=== PATIENT | male | born 1960 | race Caucasian/White ===

== ENCOUNTER → 2020-08-02 16:46 | Outpatient (CLI) | payer SELFPAY ==
[2020-08-02 17:36] LABS: Absolute Lymphocyte Count 1.04 X10^3/uL (0.83-4.51); Absolute Neutrophil Count 3.1 X10^3/uL (2.0-7.7); Basophil# 0.05 X10^3/uL; Eosinophil# 0.11 X10^3/uL; Eosinophils% 2.2 % (0-5); Hematocrit 33.1 % (40-54); Hemoglobin 9.2 g/dL (13.0-16.5); Lymphocyte # 1.04 X10^3/ul (4.0); Lymphocyte % 21.3 % (19-41); Mean Corp Hgb Conc 27.8 g/dL (32-36); Mean Corpuscular Hgb 22.1 pg (27.0-32.0); Mean Corpuscular Volume 79.6 fL (80-94); Mean Platelet Vol. 11.2 fl (6.2-12.0); Monocyte# 0.63 X10^3/uL; Monocyte% 12.9 % (0-10); NRBC Flagged by Analyzer 0 % (0-5); Neutrophil # 3.05 X10^3/uL (2.7-7.7); Neutrophil % 62.4 % (47-70); Platelet Count 238 K/mm3 (150-450); RBC Distribution Width CV 16.8 % (11.6-14.6); RBC Distribution Width SD 48.5 fl (35.1-43.9); Red Blood Count 4.16 M/mm3 (4.6-6.2); White Blood Count 4.9 K/mm3 (4.4-11.0)
[2020-08-02 17:57] LABS: BNP,B-Type NATRIURETIC PEPTIDE 864.9 pg/mL (0-100)
[2020-08-02 18:09] LABS: ALB/GLOB Ratio 1.2 RATIO (0.9-2.4); AST(SGOT) 28 U/L (15-37); Alanine Aminotransfer ALT/SGPT 41 U/L (16-61); Albumin, Serum 3.6 g/dL (3.2-5.0); Alkaline Phosphatase 83 U/L (45-117); Anion Gap 7 (5-15); BUN 25 mg/dL (7-18); BUN/Creat Ratio 18.8 RATIO (10-20); CPK Total, Creatine Kinase 280 U/L (39-308); Calcium,Total 9.2 mg/dL (8.5-10.1); Chloride 109 mmol/L (98-107); Creatinine, Serum 1.33 mg/dL (0.70-1.30); EST Glomerular Filtration Rate 58 mL/min (>60); Est Glom Filt Rate - Afr Amer 71 mL/min (>60); Glucose 95 mg/dL (74-106); PSA,Total - Annual Screen 0.92 ng/mL (0.00-4.00); Potassium 4.5 mmol/L (3.5-5.1); Protein, Total 6.6 g/dL (6.4-8.2); Sodium Level 143 mmol/L (136-145); Thyroid Stim Hormone (TSH) 3.79 uIU/mL (0.358-3.74)
[2020-08-04 07:07] LABS: HEPATITIS B SURFACE AG Negative (Negative); Hepatitis A AB, Total Negative (Negative); Hepatitis A IgM Antibody Negative (Negative); Hepatitis B Core AB IgM Negative (Negative); Hepatitis B Core Ab Total Negative (Negative); Hepatitis C Ab <0.1 s/co ratio (0.0-0.9)
[2020-08-04 09:28] LABS: Hep B Surface Antibodies Non Reactive (.); Myoglobin, Serum 97 ng/mL (28-72)
== END ==
PROVIDERS: Visit Provider Family Medicine Geriatric Medicine
DX: R06.02 Shortness of breath (principal); R53.83 Other fatigue; R60.9 Edema, unspecified; Z12.5 Encounter for screening for malignant neoplasm of prostate; Z13.89 Encounter for screening for other disorder
CPT/HCPCS: 36415; 80053; 82550; 83874; 83880; 84153; 84443; 84484; 85025; 86704; 86705; 86706; 86708; 86709; 86803; 87340; G0103

== ENCOUNTER → 2020-08-03 09:49 | Outpatient (CLI) | payer SELFPAY ==
--- NOTE | 2020-08-03 09:57 | RAD_ITS ---
STUDY: X-RAY CHEST REASON FOR EXAM: Male, 59 years old. CHF TECHNIQUE: PA and lateral views of the chest. COMPARISON: None. FINDINGS: Azygos lobe. This is a normal variant. Mild elevation of the right hemidiaphragm. There is mild cardiac enlargement. Normal mediastinum and ralf. Normal visualized pulmonary arteries. Normal visualized aortic arch and descending thoracic aorta. There are diffuse degenerative changes of the visualized thoracic spine. Normal visualized ribs, clavicles, and shoulders. Large hiatal hernia. RAD/Chest PA and Lateral IMPRESSION: Large hiatal hernia. Cardiomegaly. Electronically Signed: Tom Sheikh MD at 10:52 EDT , Service support ,
== END ==
PROVIDERS: PCP Family Medicine Geriatric Medicine; Referring Provider Family Medicine Geriatric Medicine; Visit Provider Family Medicine Geriatric Medicine
DX: I50.9 Heart failure, unspecified (principal); K44.9 Diaphragmatic hernia without obstruction or gangrene
CPT/HCPCS: 71046

== ENCOUNTER → 2020-08-03 11:10 | Outpatient (CLI) | payer SELFPAY ==
[2020-08-03 12:46] LABS: Absolute Lymphocyte Count 0.74 X10^3/uL (0.83-4.51); Basophil# 0.04 X10^3/uL; Basophil% 0.9 % (0-1); Eosinophils% 2.3 % (0-5); Hematocrit 33.7 % (40-54); Hemoglobin 9.3 g/dL (13.0-16.5); Lymphocyte # 0.74 X10^3/ul (4.0); Lymphocyte % 16.8 % (19-41); Mean Corp Hgb Conc 27.6 g/dL (32-36); Mean Corpuscular Hgb 22.2 pg (27.0-32.0); Mean Corpuscular Volume 80.4 fL (80-94); Mean Platelet Vol. 11.8 fl (6.2-12.0); Monocyte# 0.55 X10^3/uL; Monocyte% 12.5 % (0-10); NRBC Flagged by Analyzer 0 % (0-5); Neutrophil # 2.96 X10^3/uL (2.7-7.7); Neutrophil % 67.3 % (47-70); Platelet Count 237 K/mm3 (150-450); RBC Distribution Width SD 49.3 fl (35.1-43.9); Red Blood Count 4.19 M/mm3 (4.6-6.2); White Blood Count 4.4 K/mm3 (4.4-11.0)
[2020-08-03 13:05] LABS: Vitamin B12 451 pg/mL (211-911)
[2020-08-03 13:15] LABS: Ferritin 6 ng/mL (26-388); Iron 22 ug/dL (65-175); Iron Binding Capacity,Total 458 ug/dL (250-450)
== END ==
PROVIDERS: PCP Family Medicine Geriatric Medicine; Visit Provider Family Medicine Geriatric Medicine
DX: D64.9 Anemia, unspecified (principal)
CPT/HCPCS: 36415; 82607; 82728; 82746; 83540; 83550; 85025

== ENCOUNTER → 2020-08-09 09:45 | Outpatient (CLI) | payer SELFPAY ==
[2020-08-06 08:42] VITALS: BMI 35.3
--- NOTE | 2020-08-09 09:47 | ECHOD_ITS ---
Reason For Study: ENDOCARDITIS Procedure This was a 2D Doppler, Color Flow transthoracic echocardiogram. Exam performed in department. Left Ventricle Normal LV size. The estimated ejection fraction is 65 %. Stage 2 diastolic dysfunction. No regional wall motion abnormalities noted. Right Ventricle Normal RV size. Normal systolic function. Atria The left atrium is severely enlarged. The right atrium is mildly enlarged. No doppler evidence for ASD. Mitral Valve There is no mitral valve stenosis. Moderate (2+) mitral valve insufficiency. Tricuspid Valve There is no tricuspid stenosis. Trivial tricuspid valve insufficiency. Pulmonary artery systolic pressure is 60 mmHg. Aortic Valve Trisinus/trileaflet aortic valve. There is no aortic stenosis. Mild (1+) aortic valve insufficiency. Pulmonic Valve There is no pulmonic valvular stenosis. Trivial pulmonic valve insufficiency. Great Vessels Normal aortic root. Pericardium/Pleural No pericardial effusion. MMode/2D Measurements & Calculations LVIDd: 5.9 cm IVSd: 1.1 cm Ao root diam: 3.2 cm LVIDs: 3.6 cm LVPWd: 1.1 cm RVDd: 4.0 cm FS: 39.3 % LAV(MOD-bp): 206.6 ml LVAd ap4: 47.4 cm2 SV(MOD-sp4): 115.9 ml LAV(MOD-bp) Indexed: 85.2 ml/m2 EDV(MOD-sp4): 190.1 ml LAV(MOD-sp2): 222.4 ml EDV(sp4-el): 201.3 ml LAV(MOD-sp4): 185.2 ml LVAs ap4: 26.6 cm2 ESV(MOD-sp4): 74.1 ml ESV(sp4-el): 74.8 ml EF(MOD-sp4): 61.0 % EF(sp4-el): 62.8 % SV(sp4-el): 126.5 ml LA A4 area: 43.5 cm2 RA A4 area: 27.0 cm2 Time Measurements MV dec time: 0.17 sec Doppler Measurements & Calculations MV E max kael: 172.9 cm/sec Lat Peak E' Kael: 11.2 cm/sec Med Peak E' Kael: 5.8 cm/sec MV A max kael: 135.4 cm/sec E/E' lat: 15.4 E/E' med: 29.7 MV E/A: 1.3 Ao V2 max: 146.4 cm/sec AI max kael: 445.5 cm/sec LV V1 max: 132.4 cm/sec Ao max P.6 mmHg AI max P.4 mmHg LV V1 max P.0 mmHg AI dec slope: 319.4 cm/sec2 AI P1/2t: 408.5 msec PA V2 max: 113.6 cm/sec TR max kael: 341.9 cm/sec TR max P.8 mmHg Interpretation Summary The estimated ejection fraction is 65 %. Stage 2 diastolic dysfunction. Moderate (2+) mitral valve insufficiency. Pulmonary artery systolic pressure is 60 mmHg. Mild (1+) aortic valve insufficiency. Trivial pulmonic valve insufficiency. The left atrium is severely enlarged. Ordering Physician: Osito Alcantar Referring Physician: Osito Alcantar Chi Performed By: Antonieta Delacruz RDCS
[2020-08-09 15:05] LABS: Absolute Lymphocyte Count 0.98 X10^3/uL (0.83-4.51); Basophil# 0.06 X10^3/uL; Eosinophil# 0.11 X10^3/uL; Eosinophils% 1.8 % (0-5); Hematocrit 34.7 % (40-54); Hemoglobin 9.6 g/dL (13.0-16.5); Lymphocyte # 0.98 X10^3/ul (4.0); Lymphocyte % 16.4 % (19-41); Mean Corp Hgb Conc 27.7 g/dL (32-36); Mean Corpuscular Volume 79.6 fL (80-94); Monocyte# 0.87 X10^3/uL; Monocyte% 14.5 % (0-10); NRBC Flagged by Analyzer 0 % (0-5); Neutrophil # 3.96 X10^3/uL (2.7-7.7); Neutrophil % 66.1 % (47-70); Platelet Count 245 K/mm3 (150-450); RBC Distribution Width CV 17.1 % (11.6-14.6); RBC Distribution Width SD 48.7 fl (35.1-43.9); Red Blood Count 4.36 M/mm3 (4.6-6.2)
[2020-08-09 15:30] LABS: Anion Gap 3 (5-15); BUN 24 mg/dL (7-18); BUN/Creat Ratio 17.9 RATIO (10-20); Calcium,Total 9.4 mg/dL (8.5-10.1); Chloride 109 mmol/L (98-107); Creatinine, Serum 1.34 mg/dL (0.70-1.30); EST Glomerular Filtration Rate 58 mL/min (>60); Est Glom Filt Rate - Afr Amer 70 mL/min (>60); Glucose 80 mg/dL (74-106); Potassium 5.4 mmol/L (3.5-5.1); Sodium Level 141 mmol/L (136-145)
== END ==
LOC: CVS 09:46 → LAB 14:14
PROVIDERS: PCP Family Medicine Geriatric Medicine; Referring Provider Family Medicine Geriatric Medicine; Visit Provider Family Medicine Geriatric Medicine
DX: I38 Endocarditis, valve unspecified (principal); D50.9 Iron deficiency anemia, unspecified; I50.33 Acute on chronic diastolic (congestive) heart failure
CPT/HCPCS: 36415; 80048; 85025; 93306

== ENCOUNTER → 2020-08-15 15:57 | Outpatient (CLI) | payer SELFPAY ==
[2020-08-15 17:16] LABS: Anion Gap 6 (5-15); BUN 25 mg/dL (7-18); BUN/Creat Ratio 17.6 RATIO (10-20); Calcium,Total 9.5 mg/dL (8.5-10.1); Chloride 108 mmol/L (98-107); Creatinine, Serum 1.42 mg/dL (0.70-1.30); EST Glomerular Filtration Rate 54 mL/min (>60); Est Glom Filt Rate - Afr Amer 65 mL/min (>60); Glucose 96 mg/dL (74-106); Potassium 4.3 mmol/L (3.5-5.1); Sodium Level 139 mmol/L (136-145)
== END ==
PROVIDERS: Visit Provider Family Medicine Geriatric Medicine
DX: E87.5 Hyperkalemia (principal)
CPT/HCPCS: 36415; 80048

== ENCOUNTER → 2020-09-06 16:46 | Outpatient (CLI) | payer SELFPAY ==
[2020-09-06 17:08] LABS: Absolute Lymphocyte Count 1.25 X10^3/uL (0.83-4.51); Absolute Neutrophil Count 3.6 X10^3/uL (2.0-7.7); Basophil# 0.06 X10^3/uL; Eosinophil# 0.15 X10^3/uL; Eosinophils% 2.6 % (0-5); Hematocrit 40.9 % (40-54); Hemoglobin 11.5 g/dL (13.0-16.5); Lymphocyte # 1.25 X10^3/ul (0.83-4.51); Lymphocyte % 21.6 % (19-41); Mean Corp Hgb Conc 28.1 g/dL (32-36); Mean Corpuscular Volume 78.2 fL (80-94); Mean Platelet Vol. 10.6 fl (6.2-12.0); Monocyte% 12.1 % (0-10); NRBC Flagged by Analyzer 0 % (0-5); Neutrophil # 3.61 X10^3/uL (2.7-7.7); Neutrophil % 62.4 % (47-70); Platelet Count 242 K/mm3 (150-450); RBC Distribution Width CV 19.3 % (11.6-14.6); RBC Distribution Width SD 53.1 fl (35.1-43.9); Red Blood Count 5.23 M/mm3 (4.6-6.2); White Blood Count 5.8 K/mm3 (4.4-11.0)
[2020-09-06 17:31] LABS: Anion Gap 3 (5-15); BUN 34 mg/dL (7-18); BUN/Creat Ratio 26.6 RATIO (10-20); Calcium,Total 9.4 mg/dL (8.5-10.1); Chloride 105 mmol/L (98-107); Creatinine, Serum 1.28 mg/dL (0.70-1.30); EST Glomerular Filtration Rate 61 mL/min (>60); Est Glom Filt Rate - Afr Amer 74 mL/min (>60); Glucose 91 mg/dL (74-106); Potassium 5.1 mmol/L (3.5-5.1); Sodium Level 135 mmol/L (136-145)
== END ==
PROVIDERS: Visit Provider Family Medicine Geriatric Medicine
DX: D50.9 Iron deficiency anemia, unspecified (principal); N17.9 Acute kidney failure, unspecified
CPT/HCPCS: 36415; 80048; 85025

== ENCOUNTER → 2020-11-30 09:53 | Outpatient (CLI) | payer SELFPAY ==
[2020-08-24 10:31] VITALS: BMI 34.2
--- NOTE | 2020-11-30 09:57 | ECHOD_ITS ---
Reason For Study: Chronic Diastolic CHF, MR Procedure This was a 2D Doppler, Color Flow transthoracic echocardiogram. Exam performed in department. Left Ventricle Normal LV size. Left ventricular systolic function is normal. Stage 1 diastolic dysfunction. No regional wall motion abnormalities noted. Right Ventricle Normal RV size. Normal systolic function. Atria Normal left atrium. Normal right atrium. Mitral Valve Mild focal mitral valve calcification, bileaflet. Mild (1+) eccentric mitral valve insufficiency. Tricuspid Valve Normal tricuspid valve. Aortic Valve Trisinus/trileaflet aortic valve. Mild (1+) aortic valve insufficiency. Pulmonic Valve Normal pulmonic valve. Great Vessels Normal aortic root. The pulmonary artery is normal size. Normal inferior vena cava. Pericardium/Pleural No pericardial effusion. MMode/2D Measurements & Calculations LVIDd: 4.2 cm IVSd: 2.3 cm Ao root diam: 4.0 cm LVIDs: 3.0 cm LVPWd: 1.6 cm LA dimension: 4.4 cm RVDd: 4.3 cm FS: 29.9 % LAV(MOD-bp): 127.0 ml LA A4 area: 37.6 cm2 RA A4 area: 23.1 cm2 LAV(MOD-bp) Indexed: 53.7 ml/m2 LAV(MOD-sp2): 92.3 ml LAV(MOD-sp4): 168.7 ml Time Measurements MV dec time: 0.30 sec Doppler Measurements & Calculations MV E max kael: 60.9 cm/sec Lat Peak E' Kael: 5.6 cm/sec Med Peak E' Kael: 2.6 cm/sec MV A max kael: 124.7 cm/sec E/E' lat: 11.0 E/E' med: 23.6 MV E/A: 0.49 MV V2 max: 151.4 cm/sec MV P1/2t max kael: 89.3 cm/sec Ao V2 max: 112.5 cm/sec MV max P.2 mmHg MV P1/2t: 112.5 msec Ao max P.1 mmHg MV V2 mean: 82.4 cm/sec MV dec slope: 232.5 cm/sec2 MV mean P.3 mmHg MVA(P1/2t): 2.0 cm2 MV V2 VTI: 33.2 cm AI max kael: 398.6 cm/sec LV V1 max: 86.5 cm/sec MR max kael: 586.0 cm/sec AI max P.6 mmHg LV V1 max P.0 mmHg MR max P.4 mmHg MR mean kael: 419.0 cm/sec AI dec slope: 164.3 cm/sec2 MR mean P.5 mmHg AI P1/2t: 710.8 msec MR VTI: 189.2 cm PA V2 max: 157.9 cm/sec ECHO/Echo Complete Interpretation Summary Normal LV size. Left ventricular systolic function is normal. No regional wall motion abnormalities noted. Mild (1+) eccentric mitral valve insufficiency. Mild (1+) aortic valve insufficiency. Stage 1 diastolic dysfunction. Ordering Physician: Ancelmo Maciel Referring Physician: Osito Alcantar Chi Performed By: Joshua Gomez RCS
== END ==
PROVIDERS: PCP Family Medicine Geriatric Medicine; Referring Provider Internal Medicine Cardiovascular Disease; Visit Provider Internal Medicine Cardiovascular Disease
DX: I50.32 Chronic diastolic (congestive) heart failure (principal); I34.0 Nonrheumatic mitral (valve) insufficiency; I51.7 Cardiomegaly; I51.9 Heart disease, unspecified; I27.21 Secondary pulmonary arterial hypertension
CPT/HCPCS: 93306

== ENCOUNTER → 2020-12-06 12:06 | Outpatient (CLI) | payer SELFPAY ==
[2020-08-24 10:31] VITALS: BMI 34.2
[2020-12-06 17:24] LABS: Absolute Lymphocyte Count 1.47 X10^3/uL (0.83-4.51); Absolute Neutrophil Count 2.3 X10^3/uL (2.0-7.7); Basophil# 0.03 X10^3/uL; Basophil% 0.6 % (0-1); Eosinophil# 0.17 X10^3/uL; Eosinophils% 3.6 % (0-5); Hematocrit 41.8 % (40-54); Lymphocyte # 1.47 X10^3/ul (0.83-4.51); Lymphocyte % 31.3 % (19-41); Mean Corp Hgb Conc 31.1 g/dL (32-36); Mean Corpuscular Hgb 25.6 pg (27.0-32.0); Mean Corpuscular Volume 82.3 fL (80-94); Monocyte% 14.9 % (0-10); NRBC Flagged by Analyzer 0 % (0-5); Neutrophil # 2.32 X10^3/uL (2.7-7.7); Neutrophil % 49.4 % (47-70); Platelet Count 201 K/mm3 (150-450); Red Blood Count 5.08 M/mm3 (4.6-6.2); White Blood Count 4.7 K/mm3 (4.4-11.0)
[2020-12-06 18:21] LABS: AST(SGOT) 29 U/L (15-37); Alanine Aminotransfer ALT/SGPT 33 U/L (16-61); Albumin, Serum 3.8 g/dL (3.2-5.0); Alkaline Phosphatase 77 U/L (45-117); Anion Gap 6 (5-15); BUN 26 mg/dL (7-18); BUN/Creat Ratio 21.7 RATIO (10-20); Calcium,Total 9.4 mg/dL (8.5-10.1); Chloride 106 mmol/L (98-107); EST Glomerular Filtration Rate 66 mL/min (>60); Est Glom Filt Rate - Afr Amer 79 mL/min (>60); Globulin 3.7 g/dL (2.2-4.2); Glucose 74 mg/dL (74-106); Potassium 4.2 mmol/L (3.5-5.1); Protein, Total 7.5 g/dL (6.4-8.2); Sodium Level 138 mmol/L (136-145)
[2020-12-06 21:25] LABS: Vitamin D,25 Hydroxy 27.4 ng/mL
== END ==
PROVIDERS: PCP Family Medicine Geriatric Medicine; Visit Provider Family Medicine Geriatric Medicine
DX: E55.9 Vitamin D deficiency, unspecified (principal); R53.83 Other fatigue
CPT/HCPCS: 36415; 80053; 82306; 84443; 85025

== ENCOUNTER → 2021-03-06 16:13 | Outpatient (CLI) | payer SELFPAY ==
[2021-03-06 17:06] LABS: Absolute Lymphocyte Count 1.56 X10^3/uL (0.83-4.51); Absolute Neutrophil Count 2.9 X10^3/uL (2.0-7.7); Basophil# 0.04 X10^3/uL; Basophil% 0.7 % (0-1); Eosinophil# 0.12 X10^3/uL; Eosinophils% 2.2 % (0-5); Hematocrit 45.3 % (40-54); Hemoglobin 14.9 g/dL (13.0-16.5); Lymphocyte # 1.56 X10^3/ul (0.83-4.51); Lymphocyte % 29.2 % (19-41); Mean Corp Hgb Conc 32.9 g/dL (32-36); Mean Corpuscular Hgb 28.9 pg (27.0-32.0); Mean Corpuscular Volume 87.8 fL (80-94); Mean Platelet Vol. 11.3 fl (6.2-12.0); Monocyte# 0.73 X10^3/uL; Monocyte% 13.7 % (0-10); NRBC Flagged by Analyzer 0 % (0-5); Neutrophil # 2.88 X10^3/uL (2.7-7.7); Platelet Count 197 K/mm3 (150-450); RBC Distribution Width CV 15.6 % (11.6-14.6); RBC Distribution Width SD 50.8 fl (35.1-43.9); Red Blood Count 5.16 M/mm3 (4.6-6.2); White Blood Count 5.3 K/mm3 (4.4-11.0)
[2021-03-06 17:28] LABS: Vitamin D,25 Hydroxy 26.4 ng/mL
[2021-03-06 17:39] LABS: AST(SGOT) 32 U/L (15-37); Alanine Aminotransfer ALT/SGPT 31 U/L (16-61); Alkaline Phosphatase 84 U/L (45-117); Anion Gap 9 (5-15); BUN 27 mg/dL (7-18); BUN/Creat Ratio 17.6 RATIO (10-20); Calcium,Total 10.4 mg/dL (8.5-10.1); Chloride 103 mmol/L (98-107); Creatinine, Serum 1.53 mg/dL (0.70-1.30); EST Glomerular Filtration Rate 50 mL/min (>60); Est Glom Filt Rate - Afr Amer 60 mL/min (>60); Glucose 91 mg/dL (74-106); Potassium 4.6 mmol/L (3.5-5.1); Sodium Level 140 mmol/L (136-145); Thyroid Stim Hormone (TSH) 3.43 uIU/mL (0.358-3.74)
== END ==
PROVIDERS: PCP Family Medicine Geriatric Medicine; Visit Provider Family Medicine Geriatric Medicine
DX: E55.9 Vitamin D deficiency, unspecified (principal); R53.83 Other fatigue
CPT/HCPCS: 36415; 80053; 82306; 84443; 85025

== ENCOUNTER 2021-08-08 15:34 | Outpatient (CLI) | payer SELFPAY ==
[2021-08-08 17:12] LABS: ALB/GLOB Ratio 1.1 RATIO (0.9-2.4); AST(SGOT) 26 U/L (15-37); Alanine Aminotransfer ALT/SGPT 30 U/L (16-61); Albumin, Serum 3.9 g/dL (3.2-5.0); Alkaline Phosphatase 84 U/L (45-117); Anion Gap 6 (5-15); BUN 20 mg/dL (7-18); BUN/Creat Ratio 15.5 RATIO (10-20); Calcium,Total 9.5 mg/dL (8.5-10.1); Chloride 104 mmol/L (98-107); Creatinine, Serum 1.29 mg/dL (0.70-1.30); EST Glomerular Filtration Rate 60 mL/min (>60); Est Glom Filt Rate - Afr Amer 73 mL/min (>60); Globulin 3.6 g/dL (2.2-4.2); Glucose 87 mg/dL (74-106); PSA,Total - Annual Screen 0.86 ng/mL (0.00-4.00); Potassium 4.4 mmol/L (3.5-5.1); Protein, Total 7.5 g/dL (6.4-8.2); Sodium Level 137 mmol/L (136-145); Thyroid Stim Hormone (TSH) 2.75 uIU/mL (0.358-3.74)
[2021-08-08 17:16] LABS: Absolute Lymphocyte Count 1.53 X10^3/uL (0.83-4.51); Absolute Neutrophil Count 2.4 X10^3/uL (2.0-7.7); Basophil# 0.04 X10^3/uL; Basophil% 0.8 % (0-1); Eosinophil# 0.12 X10^3/uL; Eosinophils% 2.5 % (0-5); Hematocrit 44.5 % (40-54); Hemoglobin 14.4 g/dL (13.0-16.5); Lymphocyte # 1.53 X10^3/ul (0.83-4.51); Lymphocyte % 32.4 % (19-41); Mean Corp Hgb Conc 32.4 g/dL (32-36); Mean Corpuscular Hgb 28.9 pg (27.0-32.0); Mean Corpuscular Volume 89.2 fL (80-94); Mean Platelet Vol. 11.4 fl (6.2-12.0); Monocyte# 0.67 X10^3/uL; Monocyte% 14.2 % (0-10); NRBC Flagged by Analyzer 0 % (0-5); Neutrophil # 2.35 X10^3/uL (2.7-7.7); Neutrophil % 49.9 % (47-70); Platelet Count 179 K/mm3 (150-450); RBC Distribution Width CV 14.4 % (11.6-14.6); RBC Distribution Width SD 46.8 fl (35.1-43.9); Red Blood Count 4.99 M/mm3 (4.6-6.2); White Blood Count 4.7 K/mm3 (4.4-11.0)
== END 2021-08-08 23:59 | disposition home or self-care (01) ==
LOC: POLAB3 15:37
PROVIDERS: PCP Family Medicine Geriatric Medicine; Visit Provider Family Medicine Geriatric Medicine
DX: R53.83 Other fatigue (principal); Z12.5 Encounter for screening for malignant neoplasm of prostate
CPT/HCPCS: 36415; 80053; 84153; 84443; 85025; G0103

== ENCOUNTER → 2022-08-11 | Outpatient (CLI) | payer SELFPAY ==
[2022-08-11 17:13] LABS: Absolute Lymphocyte Count 1.54 X10^3/uL (0.83-4.51); Absolute Neutrophil Count 3.2 X10^3/uL (2.0-7.7); Basophil# 0.02 X10^3/uL; Basophil% 0.4 % (0-1); Eosinophil# 0.06 X10^3/uL; Eosinophils% 1.1 % (0-5); Hemoglobin 16.3 g/dL (13.0-16.5); Lymphocyte # 1.54 X10^3/ul (0.83-4.51); Lymphocyte % 28.6 % (19-41); Mean Corpuscular Hgb 30.6 pg (27.0-32.0); Mean Corpuscular Volume 90.1 fL (80-94); Mean Platelet Vol. 11.1 fl (6.2-12.0); Monocyte# 0.59 X10^3/uL; Monocyte% 10.9 % (0-10); NRBC Flagged by Analyzer 0 % (0-5); Neutrophil # 3.18 X10^3/uL (2.7-7.7); Platelet Count 182 K/mm3 (150-450); RBC Distribution Width CV 13.6 % (11.6-14.6); RBC Distribution Width SD 45.1 fl (35.1-43.9); Red Blood Count 5.33 M/mm3 (4.6-6.2); White Blood Count 5.4 K/mm3 (4.4-11.0)
[2022-08-11 18:56] LABS: ALB/GLOB Ratio 1.2 RATIO (0.9-2.4); AST(SGOT) 26 U/L (15-37); Alanine Aminotransfer ALT/SGPT 27 U/L (16-61); Alkaline Phosphatase 86 U/L (45-117); Anion Gap 6 (5-15); BUN 21 mg/dL (7-18); BUN/Creat Ratio 15.6 RATIO (10-20); Chloride 102 mmol/L (98-107); Creatinine, Serum 1.35 mg/dL (0.70-1.30); EST Glomerular Filtration Rate 57 mL/min (>60); Est Glom Filt Rate - Afr Amer 69 mL/min (>60); Globulin 3.4 g/dL (2.2-4.2); Glucose 92 mg/dL (74-106); Potassium 4.2 mmol/L (3.5-5.1); Protein, Total 7.4 g/dL (6.4-8.2); Sodium Level 134 mmol/L (136-145); Thyroid Stim Hormone (TSH) 7.43 uIU/mL (0.358-3.74)
== END | disposition home or self-care (01) ==
PROVIDERS: PCP Family Medicine Geriatric Medicine; Referring Provider Family Medicine Geriatric Medicine; Visit Provider Family Medicine Geriatric Medicine
DX: Z12.5 Encounter for screening for malignant neoplasm of prostate (principal); R53.83 Other fatigue
CPT/HCPCS: 36415; 80053; 84153; 84443; 85025; G0103

== ENCOUNTER 2023-06-30 11:52 | Emergency (ER) | payer SELFPAY ==
[2023-06-30 11:53] VITALS: BP 161/86; PULSE 92; RESP 16; TEMP 36.4; O2SAT 98; BMI 14.6
--- NOTE | 2023-06-30 12:23 | EDS_ITS ---
HPI History of Present Illness Chief Complaint: Syncope Informant: patient Onset/Context/Timing Onset: Today Context: Sudden Onset Timing: Continuous Quality: Aching Location: Left side of head Worsened by: Nothing Relieved by: Nothing Narrative Narrative: Patient presents after syncopal episode that occurred today. Patient states he was at a grocery store when he reached down to get a can of coffee off of the bottom shelf. Patient states he stood up and felt dizzy. Patient states he remembers waking up on the floor with paramedics around him. Patient denies any chest pain or shortness of breath. Patient denies any nausea or vomiting. Patient denies any palpitations. Patient did hit the left side of his head. Patient denies any visual changes. [facility] Medical History Bilateral lower extremity edema Chronic diastolic (congestive) heart failure Endocarditis (1993) Epistaxis, recurrent Essential hypertension Hiatal hernia Hypothyroidism Iron deficiency anemia Left atrial enlargement Left bundle branch block (LBBB) Left ventricular diastolic dysfunction Obesity Reducible right inguinal hernia Rheumatic fever Secondary pulmonary arterial hypertension Home Medications furosemide 40 mg tablet (Lasix) 40 mg PO DAILY 08/06/20 [History Last Taken Unknown] levocetirizine 5 mg tablet (Xyzal) 5 mg PO DAILY 08/06/20 [History Last Taken Unknown] ipratropium bromide 42 mcg (0.06 %) nasal spray 2 spray intranasal QHS 03/07/21 [History Last Taken Unknown] amlodipine 10 mg tablet 10 mg PO DAILY #90 tabs 03/23/23 [Rx Last Taken Unknown] levothyroxine 25 mcg tablet 25 mcg PO DAILY 03/23/23 [History Last Taken Unknown] Allergy/AdvReac Type Severity Reaction Status Date / Time salicylic acid Allergy Mild PT UNSURE Verified 06/30/23 11:57 [From P and S (salicylic OF REACTION acid)] Penicillins Allergy Anaphylaxis Verified 06/30/23 11:57 Family History Mother Diabetes Hypertension Father Heart disease Surgical History History of dermoid cyst excision History of tonsillectomy and adenoidectomy Social History Smoking Status: Former smoker how long ago did patient quit smokin alcohol intake: never substance use type: does not use caffeine: No ROS ROS ED Constitutional Constitutional ED: Denies chills or fever(s) Eyes Eyes: Denies blurry vision or change in vision ENT ENT ED: Denies rhinorrhea or sore throat Cardiovascular Cardiovascular: Denies chest pain or palpitations Respiratory/Chest Respiratory/Chest: Denies cough or dyspnea Gastrointestinal Gastrointestinal: Denies nausea or vomiting Genitourinary Genitourinary ED: Denies dysuria or hematuria Musculoskeletal Musculoskeletal: Denies back pain or neck pain Integumentary Denies abscess or rash Neurologic Neurologic: Reports headache(s); Denies weakness Allergic/Immunologic Allergic/Immunologic ED: Denies mouth swelling or urticaria EXAM Physical Exam Const Vital Signs: 06/30/23 11:53 06/30/23 11:58 06/30/23 13:00 Temperature 97.6 F L Temperature Source Temporal Pulse Rate 92 82 Pulse Rate [Lying] Pulse Rate [Sitting (for 1 minute prior to obtaining)] Pulse Rate [Standing (for 1 minute prior to obtaining)] Respiratory Rate 16 14 Respiratory Effort Normal Non-Labored Respiratory Pattern Normal Blood Pressure 161/86 H 156/84 H Blood Pressure [Lying] Blood Pressure [Sitting (for 1 minute prior to obtaining)] Blood Pressure [Standing (for 1 minute prior to obtaining)] Blood Pressure Mean 111 108 Blood Pressure Mean [Lying] Blood Pressure Mean [Sitting (for 1 minute prior to obtaining)] Blood Pressure Mean [Standing (for 1 minute prior to obtaining)] Pulse Ox 98 100 Oxygen Delivery Method Room Air Room Air 06/30/23 13:18 06/30/23 14:00 Temperature Temperature Source Pulse Rate 81 Pulse Rate [Lying] 81 Pulse Rate [Sitting (for 1 minute prior to obtaining)] 84 Pulse Rate [Standing (for 1 minute prior to obtaining)] 83 Respiratory Rate 14 Respiratory Effort Respiratory Pattern Blood Pressure 146/82 H Blood Pressure [Lying] 145/82 H Blood Pressure [Sitting (for 1 minute prior to obtaining)] 155/85 H Blood Pressure [Standing (for 1 minute prior to obtaining)] 159/88 H Blood Pressure Mean 103 Blood Pressure Mean [Lying] 103 Blood Pressure Mean [Sitting (for 1 minute prior to obtaining)] 108 Blood Pressure Mean [Standing (for 1 minute prior to obtaining)] 111 Pulse Ox 98 Oxygen Delivery Method Room Air Positive well nourished and well developed General Appearance ED: well developed and NAD HEENT Reports moist mucous membranes Eyes PERRL and EOMs intact bilaterally Eyes Narrative: There is ecchymosis over the left upper eyelid. There is edema and tenderness over the left temporal and lateral periorbital area. There is no bony crepitance or step-off noted. There is a superficial abrasion over the left temporal area. Neck supple and no JVD Resp normal respiratory effort and clear to auscultation bilaterally Cardio regular rate and regular rhythm GI non-tender and non-distended Palpation: soft Extremity normal to inspection General Extremety ED: Negative for edema or tenderness General Extremity: Negative for edema Neuro oriented x3, CN's II-XII intact bilaterally and no sensory deficits noted Sensorium / Orientation: alert Motor Exam: strength 5/5 throughout Psych mental status grossly normal MDM MDM MDM Narrative Medical decision making narrative: Differential diagnosis includes cardiac dysrhythmia, cardiac ischemia, intracranial bleeding, closed head injury, dehydration, electrolyte abnormality, and POTS. EKG will be obtained to assess for cardiac dysrhythmia and cardiac ischemia. CT scan of the brain will be obtained to assess for intracranial bleeding and stroke. Chest x-ray will be obtained to assess for cardiomegaly and pneumonia. CBC will be obtained to assess for leukocytosis and anemia. [facility] metabolic profile will be obtained to assess for electrolyte abnormality and renal function. High-sensitivity troponin will be obtained to assess for cardiac ischemia. 2-hour repeat high-sensitivity troponin will be obtained to assess for ongoing cardiac ischemia. Lab Data Attestation: I reviewed the patient's lab results. Lab results narrative: CBC was reviewed and was within normal limits. Basic metabolic profile was reviewed. BUN was 24 and creatinine was 1.43. This is consistent with prior results. High-sensitivity troponin was reviewed and was normal at 25. 2-hour repeat high-sensitivity troponin was reviewed and was 39. Labs: Laboratory Results - last 24 hr 06/30/23 06/30/23 11:59 14:45 WBC 5.2 RBC 5.41 Hgb 16.4 Hct 48.6 MCV 89.8 MCH 30.3 MCHC 33.7 RDW Std Deviation 45.1 H RDW Coeff of Sai 13.6 Plt Count 202 MPV 12.0 Immature Gran % (Auto) 0.200 Neut % (Auto) 53.5 Lymph % (Auto) 34.4 [place] % (Auto) 9.2 Eos % (Auto) 1.9 Baso % (Auto) 0.8 Absolute Neuts (auto) 2.8 Absolute Lymphs (auto) 1.79 Nucleated RBC % 0 Sodium 139 Potassium 3.9 Chloride 105 Carbon Dioxide 25.0 Anion Gap 9 BUN 24 H Creatinine 1.43 H Estim Creat Clear Calc 37.99 Est GFR (MDRD) Af Amer 64 Est GFR (MDRD) Non-Af 53 L BUN/Creatinine Ratio 16.8 Glucose 114 H Calcium 11.0 H Troponin I High Sens 25 39 TSH 3.06 Radiography Diagnostic Testing: Clinical Impression(s) from Imaging Studies Brain CT 06/30/23 12:53 IMPRESSION: Normal unenhanced CT scan of the brain. Small hematoma overlying the left orbital region. Electronically Signed: Tom Sheikh MD at 13:23 EST , Chest X-Ray 06/30/23 13:05 IMPRESSION: There is elevation of the left hemidiaphragm. Findings suggestive of bibasilar atelectasis. Electronically Signed: Tom Sheikh MD at 13:24 EST , CT scan of the brain was obtained. There is no acute intracranial abnormality. There is a small hematoma in the left orbital region. This was interpreted by the radiologist and was also independently reviewed by myself. Portable 1 view chest x-ray was obtained. On my independent interpretation, lung persaud are clear. There is normal cardiac silhouette. Bony thorax is normal. There is no acute process noted. Radiologist also interpreted the x- ray and agrees. EKG Initial EKG: Attestation: I personally reviewed and interpreted this EKG as follows: Interpretation: Sinus Rhythm (With a first-degree AV block with a rate of 85) and LBBB Comments: EKG was obtained. On my independent interpretation, it shows a sinus rhythm with a first-degree AV block with a rate of 85. PA interval was slightly prolonged at 212 ms. QRS interval was prolonged at 176 ms. QTc interval was prolonged at 497 ms. Waterman was borderline at -12. There is left bundle branch block pattern noted. There are no prior EKGs available for comparison. Prior EKG tracings: not available for review Prior: No Prior Treatment and Re-Evaluation :: Patient was given IV fluids. Patient was advised of his findings. Patient was instructed to use ice to the left frontal area. Patient was instructed to follow-up with his primary care physician in 3 to 5 days for further evaluation. Patient understood and was agreeable with the plan. All questions were answered. Discharge Plan Triage Chief Complaint: Syncope ED Provider: Klaus Ontiveros Dx/Rx/DC Orders Clinical Impression: Syncope and collapse, Left bundle branch block (LBBB) Instructions: ED Fainting, Uncertain Cause Prescriptions: No Action levocetirizine [Xyzal] 5 mg tablet 5 mg PO DAILY furosemide [Lasix] 40 mg tablet 40 mg PO DAILY ipratropium bromide 42 mcg (0.06 %) spray,non-aerosol 2 spray INTRANASAL QHS Rx Instructions: administer into each nostril levothyroxine 25 mcg tablet 25 mcg PO DAILY amlodipine 10 mg tablet 10 mg PO DAILY Qty: 90 3RF Primary Care Provider: Osito Alcantar Chi Referrals: Osito Alcantar Chi, MD [Primary Care Provider] - 3-5 Days Disposition Disposition: Home, Self Care
--- NOTE | 2023-06-30 12:53 | EKG12_ITS ---
Test Reason : SYNCOPE Blood Pressure : / mmHG Vent. Rate : 085 BPM Atrial Rate : 085 BPM P-R Int : 212 ms QRS Dur : 176 ms QT Int : 418 ms P-R-T Axes : 056 -12 111 degrees QTc Int : 497 ms Sinus rhythm with 1st degree A-V block with Premature supraventricular complexes Possible Left atrial enlargement Left bundle branch block Abnormal ECG Confirmed by Jose Reynaga ([id number]), city editor CADE FERNANDES ([id number]) on 07/01/2023 10:55:51 AM Referred By: RIKA Confirmed By:Jose Reynaga
--- NOTE | 2023-06-30 12:53 | CT_ITS ---
STUDY: CT BRAIN WITHOUT CONTRAST REASON FOR EXAM: Male, 62 years old. Head injury due to a fall. RADIATION DOSAGE (If Supplied By Facility): CTDIvol = ( 47.06 ) mGy, DLP = ( 960.91 ) mGycm TECHNIQUE: Transaxial CT imaging of the brain was performed without administration of intravenous contrast material. Individualized dose optimization techniques were used for this CT. COMPARISON: No relevant priors. FINDINGS: Small hematoma overlying the left orbital region. Normal calvarium. Normal size ventricles and extra-axial spaces for the patient''s age. Normal white matter tracts of the cerebral hemispheres. Normal basal ganglia and thalami. Normal brainstem. Normal cerebellum. Prominence of the cisterna magna. This is a normal variant. There is no intracranial hemorrhage. There are no findings of an acute ischemic infarction. Normal visualized paranasal sinuses. CT/Brain/Head without Contrast IMPRESSION: Normal unenhanced CT scan of the brain. Small hematoma overlying the left orbital region. Electronically Signed: Tom Sheikh MD at 13:23 EST ,
--- NOTE | 2023-06-30 12:57 | NURSING ---
NO OLD EKGS
[2023-06-30 13:00] VITALS: BP 156/84; PULSE 82; RESP 14; O2SAT 100
[2023-06-30 13:04] LABS: Absolute Lymphocyte Count 1.79 X10^3/uL (0.83-4.51); Absolute Neutrophil Count 2.8 X10^3/uL (2.0-7.7); Basophil# 0.04 X10^3/uL; Basophil% 0.8 % (0-1); Eosinophils% 1.9 % (0-5); Hematocrit 48.6 % (40-54); Hemoglobin 16.4 g/dL (13.0-16.5); Lymphocyte # 1.79 X10^3/ul (0.83-4.51); Lymphocyte % 34.4 % (19-41); Mean Corp Hgb Conc 33.7 g/dL (32-36); Mean Corpuscular Hgb 30.3 pg (27.0-32.0); Mean Corpuscular Volume 89.8 fL (80-94); Monocyte# 0.48 X10^3/uL; Monocyte% 9.2 % (0-10); NRBC Flagged by Analyzer 0 % (0-5); Neutrophil # 2.78 X10^3/uL (2.7-7.7); Neutrophil % 53.5 % (47-70); Platelet Count 202 K/mm3 (150-450); RBC Distribution Width CV 13.6 % (11.6-14.6); RBC Distribution Width SD 45.1 fl (35.1-43.9); Red Blood Count 5.41 M/mm3 (4.6-6.2); White Blood Count 5.2 K/mm3 (4.4-11.0)
--- NOTE | 2023-06-30 13:05 | RAD_ITS ---
STUDY: X-RAY CHEST REASON FOR EXAM: Male, 62 years old. Syncope TECHNIQUE: Single AP portable view of the chest. COMPARISON: None. FINDINGS: EKG electrodes are seen. Elevation of the left hemidiaphragm. Mild increased markings at the lung bases suggestive of bibasilar atelectasis. There is no demonstrated pleural abnormality. Normal size heart. Normal mediastinum and ralf. Normal visualized pulmonary arteries. Normal visualized aortic arch and descending thoracic aorta. There are diffuse degenerative changes of the visualized thoracic spine. Normal visualized ribs, clavicles, and shoulders. There is no demonstrated abnormality of the visualized soft tissue structures of the upper abdomen. RAD/Chest 1 View (Portable) IMPRESSION: There is elevation of the left hemidiaphragm. Findings suggestive of bibasilar atelectasis. Electronically Signed: Tom Sheikh MD at 13:24 EST ,
[2023-06-30 13:18] VITALS: BP 145/82; BP 155/85; BP 159/88; PULSE 81; PULSE 83; PULSE 84
[2023-06-30 13:21] LABS: Anion Gap 9 (5-15); BUN 24 mg/dL (7-18); BUN/Creat Ratio 16.8 RATIO (10-20); Chloride 105 mmol/L (98-107); Creatinine, Serum 1.43 mg/dL (0.70-1.30); EST Glomerular Filtration Rate 53 mL/min (>60); Est Glom Filt Rate - Afr Amer 64 mL/min (>60); Estimated Creatinine Clearance 37.99 ml/min; Glucose 114 mg/dL (74-106); Potassium 3.9 mmol/L (3.5-5.1); Sodium Level 139 mmol/L (136-145); Troponin-I HS (w/2H Reflex) 25 pg/mL (3.0-78.0)
[2023-06-30 14:00] VITALS: BP 146/82; PULSE 81; RESP 14; O2SAT 98
[2023-06-30] MEDS: 0.9% Normal Saline (500mL Bag) 500 ML 1000 ML IV (14:06)
[2023-06-30 15:00] LABS: Reflex Troponin-HS? (from REC) Y
[2023-06-30 15:30] LABS: Troponin-I HS 39 pg/mL (3.0-78.0)
[2023-06-30 15:38] LABS: Thyroid Stim Hormone (TSH) 3.06 uIU/mL (0.358-3.74)
[2023-06-30 16:00] VITALS: BP 147/77; PULSE 64; RESP 16; TEMP 36.4; O2SAT 99
== END 2023-06-30 16:33 | disposition home or self-care (01) ==
PROVIDERS: Emergency Provider Emergency Medicine; PCP Family Medicine Geriatric Medicine; Visit Provider Emergency Medicine
DX: R55 Syncope and collapse (principal); I50.32 Chronic diastolic (congestive) heart failure; I11.0 Hypertensive heart disease with heart failure; I44.7 Left bundle-branch block, unspecified; Z79.899 Other long term (current) drug therapy; Z87.891 Personal history of nicotine dependence
CPT/HCPCS: 70450; 71045; 80048; 84443; 84484; 85025; 93005; 96360; 99285; J7040; A4216

== ENCOUNTER → 2023-08-17 | Outpatient (CLI) | payer SELFPAY ==
[2023-08-17 10:37] LABS: Absolute Lymphocyte Count 1.36 X10^3/uL (0.83-4.51); Absolute Neutrophil Count 3.4 X10^3/uL (2.0-7.7); Basophil# 0.05 X10^3/uL; Basophil% 0.9 % (0-1); Eosinophil# 0.22 X10^3/uL; Eosinophils% 3.9 % (0-5); Hematocrit 48.8 % (40-54); Hemoglobin 16.4 g/dL (13.0-16.5); Lymphocyte # 1.36 X10^3/ul (0.83-4.51); Lymphocyte % 24.2 % (19-41); Mean Corp Hgb Conc 33.6 g/dL (32-36); Mean Corpuscular Hgb 30.5 pg (27.0-32.0); Mean Corpuscular Volume 90.7 fL (80-94); Mean Platelet Vol. 11.2 fl (6.2-12.0); Monocyte# 0.61 X10^3/uL; Monocyte% 10.8 % (0-10); NRBC Flagged by Analyzer 0 % (0-5); Neutrophil # 3.38 X10^3/uL (2.7-7.7); Platelet Count 243 K/mm3 (150-450); RBC Distribution Width CV 14.2 % (11.6-14.6); RBC Distribution Width SD 47.7 fl (35.1-43.9); Red Blood Count 5.38 M/mm3 (4.6-6.2); White Blood Count 5.6 K/mm3 (4.4-11.0)
[2023-08-17 10:59] LABS: ALB/GLOB Ratio 0.9 RATIO (0.9-2.4); AST(SGOT) 21 U/L (15-37); Alanine Aminotransfer ALT/SGPT 25 U/L (16-61); Albumin, Serum 3.7 g/dL (3.2-5.0); Alkaline Phosphatase 96 U/L (45-117); Anion Gap 6 (5-15); BUN 23 mg/dL (7-18); BUN/Creat Ratio 19.5 RATIO (10-20); Calcium,Total 9.4 mg/dL (8.5-10.1); Chloride 105 mmol/L (98-107); Creatinine, Serum 1.18 mg/dL (0.70-1.30); EST Glomerular Filtration Rate 66 mL/min (>60); Est Glom Filt Rate - Afr Amer 80 mL/min (>60); Globulin 3.9 g/dL (2.2-4.2); Glucose 117 mg/dL (74-106); PSA,Total - Annual Screen 1.25 ng/mL (0.00-4.00); Potassium 4.1 mmol/L (3.5-5.1); Protein, Total 7.6 g/dL (6.4-8.2); Sodium Level 137 mmol/L (136-145); Thyroid Stim Hormone (TSH) 1.98 uIU/mL (0.358-3.74)
== END | disposition home or self-care (01) ==
LOC: POLAB3 09:36
PROVIDERS: PCP Family Medicine Geriatric Medicine; Visit Provider Family Medicine Geriatric Medicine
DX: I10 Essential (primary) hypertension (principal); Z12.5 Encounter for screening for malignant neoplasm of prostate
CPT/HCPCS: 36415; 80053; 84153; 84443; 85025; G0103

== ENCOUNTER → 2024-03-22 | Outpatient (CLI) | payer SELFPAY ==
--- NOTE | 2024-03-22 12:37 | ECHOD_ITS ---
Reason For Study: Heart Disease Procedure This was a 2D Doppler, Color Flow transthoracic echocardiogram. Exam performed in department. Left Ventricle Normal LV size. Moderate eccentric left ventricular hypertrophy. Left ventricular systolic function is normal. Stage 1 diastolic dysfunction. The left ventricular ejection fraction is 55 %. No regional wall motion abnormalities noted. Right Ventricle Normal RV size. Normal systolic function. Atria The left atrium is severely enlarged. Normal right atrium. Mitral Valve Mild focal mitral valve calcification of the anterior leaflet. Mild mitral valve prolapse, posterior leaflet. Mild-Moderate (1-2+) posteriorly directed mitral valve insufficiency. Tricuspid Valve Normal tricuspid valve. Mild (1+) tricuspid valve insufficiency. Pulmonary artery systolic pressure is 35 mmHg. Aortic Valve Trisinus/trileaflet aortic valve. Mild (1+) eccentric aortic valve insufficiency. Pulmonic Valve Normal pulmonic valve. Great Vessels The ascending aorta is mild-moderately dilated. The pulmonary artery is normal size. Normal inferior vena cava. Pericardium/Pleural No pericardial effusion. MMode/2D Measurements & Calculations LVIDd: 4.7 cm IVSd: 2.2 cm LVOT diam: 2.8 cm LVIDs: 3.3 cm LVPWd: 1.4 cm LVOT area: 6.3 cm2 RVDd: 4.2 cm FS: 28.5 % Ao root diam: 4.3 cm asc Aorta Diam: 4.4 cm LAV(MOD-bp): 117.0 ml LA dimension: 6.2 cm LAV(MOD-bp) Indexed: 50.3 ml/m2 LAV(MOD-sp2): 101.5 ml LAV(MOD-sp4): 130.5 ml LA A4 area: 34.9 cm2 RA A4 area: 19.3 cm2 Time Measurements MV dec time: 0.19 sec Doppler Measurements & Calculations MV E max kael: 72.9 cm/sec Lat Peak E' Kael: 8.3 cm/sec MV V2 max: 152.5 cm/sec MV A max kael: 138.8 cm/sec E/E' lat: 8.8 MV max P.3 mmHg MV E/A: 0.53 MV V2 mean: 88.3 cm/sec MV mean P.6 mmHg MV V2 VTI: 35.4 cm MVA(VTI): 3.7 cm2 MV P1/2t max kael: 99.5 cm/sec Ao V2 max: 118.7 cm/sec AI max kael: 426.1 cm/sec MV P1/2t: 117.9 msec Ao max P.6 mmHg AI max P.7 mmHg Ao V2 mean: 82.6 cm/sec MV dec slope: 247.1 cm/sec2 Ao mean P.1 mmHg AI dec slope: 200.5 cm/sec2 MVA(P1/2t): 1.9 cm2 Ao V2 VTI: 23.2 cm AI P1/2t: 622.3 msec AV (velocity ratio): 0.89 MIGUELITO(I,D): 5.6 cm2 MGIUELITO(V,D): 5.4 cm2 LV V1 max: 102.1 cm/sec MR max kael: 584.2 cm/sec SV(LVOT): 130.1 ml LV V1 max P.2 mmHg MR max P.5 mmHg LV V1 mean P.2 mmHg MR mean kael: 425.6 cm/sec LV V1 mean: 67.7 cm/sec MR mean P.1 mmHg LV V1 VTI: 20.6 cm MR VTI: 199.5 cm PA V2 max: 178.6 cm/sec TR max kael: 280.1 cm/sec PA max PG (full): 11.2 mmHg TR max P.4 mmHg ECHO/Echo Complete Interpretation Summary Normal LV size. Left ventricular systolic function is normal. Stage 1 diastolic dysfunction. The left ventricular ejection fraction is 55 %. The left atrium is severely enlarged. Ordering Physician: Rodrigue Palafox Referring Physician: Osito Alcantar Chi Performed By: Joshua Mancuso and Student
== END | disposition home or self-care (01) ==
LOC: CVS 12:36
PROVIDERS: PCP Family Medicine Geriatric Medicine; Referring Provider Nurse Practitioner Family; Visit Provider Nurse Practitioner Family
DX: I44.7 Left bundle-branch block, unspecified (principal); I11.0 Hypertensive heart disease with heart failure; I50.32 Chronic diastolic (congestive) heart failure
CPT/HCPCS: 93306